=== PATIENT | female | born 2005 | race Caucasian/White ===

== ENCOUNTER 2023-06-16 09:57 | Day surgery (SDC) | payer BC ==
[~2023-06-16 09:57] MED LIST: Acetaminophen 1,000 MG in Premix Bag 1 BAG IV SCH; Famotidine 20 MG/2 ML SDV ONE; Lactated Ringers 1,000 ML IV SCH; Morphine 10 MG/ML SDV ONE; Pregabalin 75 MG Cap PO SCH; Propofol 200 MG/20 ML SDV ONE; Ropivacaine 0.5% 5 MG/ML 30 ML SDV ONE; Scopolamine 1.5 MG Transdermal Patch TOP ONE; cefOXitin 2 GM in Sodium Chloride 0.9% 50 ML IV SCH; fentaNYL 250 MCG/5 ML SDV ONE; propofoL 50 ML ONE
[2023-06-16] MEDS ORDERED: Bupivacaine 0.25% 30 ML SDV ONE (10:27)
[2023-06-16] MEDS ORDERED: Albuterol 0.083% 2.5 MG/3 ML Neb Soln NEB PRN (10:51)
[2023-06-16] MEDS ORDERED: Metoclopramide 10 MG/2 ML SDV IVPUSH PRN (10:51)
[2023-06-16] MEDS ORDERED: fentaNYL 50 MCG/ML SDV IVPUSH PRN (10:51)
[2023-06-16] MEDS ORDERED: Morphine 2 MG/ML SYRINGE IVPUSH PRN (10:51)
[2023-06-16] MEDS ORDERED: droPERidol 5 MG/2 ML SDV IVPUSH PRN (10:51)
[2023-06-16] MEDS ORDERED: Naloxone 0.4 MG/ML SDV IVPUSH PRN (10:51)
[2023-06-16] MEDS ORDERED: HYDROmorphone 1 MG/ML Syringe IVPUSH PRN (10:51)
[2023-06-16] MEDS ORDERED: Ondansetron 4 MG/2 ML SDV IVPUSH PRN (10:51)
[2023-06-16] MEDS ORDERED: Phenylephrine HCl 0.5 MG/5 ML AMP ONE (11:43)
[2023-06-16] MEDS ORDERED: Ondansetron 4 MG/2 ML SDV ONE (11:45)
[2023-06-16] MEDS ORDERED: Dexamethasone 4 MG/ML 5 ML MDV ONE (11:45)
[2023-06-16] MEDS ORDERED: ePHEDrine 50 MG/ML SDV ONE (11:45)
[2023-06-16] MEDS ORDERED: Indocyanine Green 25 MG SDV ONE (11:54)
[2023-06-16] MEDS ORDERED: propofoL 50 ML ONE (12:11)
[2023-06-16] MEDS ORDERED: fentaNYL 100 MCG/2 ML SDV ONE ×2 (12:17→12:37)
[2023-06-16] MEDS ORDERED: Sugammadex Sodium 200 MG/2 ML VIAL ONE (13:19)
== END 2023-06-16 14:45 | disposition home or self-care (01) ==
LOC: MW.SDS 09:57
PROVIDERS: ATTEND Surgery
DX: K81.1 Chronic cholecystitis (principal); K82.8 Other specified diseases of gallbladder
CPT/HCPCS: 47562; 64488; 81025; A9270; J1100; J2270; J2371; J2405; J2704; J2795; J3010; J3490; J7120; 00790